=== PATIENT | female | born 1995 | race Caucasian/White ===

== ENCOUNTER 2017-01-01 05:56 | Day surgery (SDC) | payer BC ==
[2017-01-01] MEDS ORDERED: Lactated Ringers 1,000 ML IV SCH (06:30)
[2017-01-01] MEDS ORDERED: Lactated Ringers 1,000 ML IV ONE ×2 (06:45→08:33)
[2017-01-01] MEDS ORDERED: Versed 2 MG/2 ML Injection IV ONE (08:00)
[2017-01-01] MEDS ORDERED: DIPRIVAN 200 MG/20 ML IV ONE (08:00)
--- NOTE | 2017-01-01 09:17 | OP ---
SURGERY DATE/TIME: 01/01/2017 0754 PREOPERATIVE DIAGNOSIS: Abdominal pain. POSTOPERATIVE DIAGNOSIS: Normal examinations. PROCEDURES: 1) Esophagogastroduodenoscopy with biopsy. 2) Colonoscopy with biopsy. SURGEON: Dr. Laws. ANESTHESIA: Medications were given by the anesthesia department. HISTORY: The patient is a 21 year old white female presenting for several year history of abdominal pain in epigastric and lower abdomen. The patient reports that she previously had a cholecystectomy performed which she felt did help initially. She was found to have a low ejection fraction when this was done. The patient now presents for endoscopic evaluation due to the persistence of the pain. She was described the risks of the procedure including risk of perforation, phlebitis, untoward reaction to medication, bleeding and missed lesions. The patient verbalized her understanding and desired to have the procedure performed. DESCRIPTION OF PROCEDURE: The patient was given the medications by the anesthesia department. She had continuous pulse oximetry, ECG monitoring, intermittent blood pressure monitoring and tidal CO2 monitoring during the examination. She was placed in the left lateral decubitus position. A bite block was placed and the flexible Olympus gastroscope was used to intubate the oropharynx. A view of the esophagus was developed and it was normal throughout its length. The stomach was entered. The gastric christianson was suctioned dry and the stomach was re-insufflated. The gastric rugal folds distended nicely with insufflation of air. The scope was passed along the greater curvature of the stomach to the antrum. The pylorus is encountered and intubated. The duodenum is inspected. Biopsies were obtained to rule out celiac sprue. The scope is withdrawn towards the stomach. A retroflex view was obtained of the lesser curvature, fundus and cardia regions of the stomach and these appeared to be normal. The scope was then redirected towards the antrum and biopsies were obtained to rule out the presence of Helicobacter pylori-type organisms. The scope was then removed from the patient. Next, a digital rectal examination was performed and revealed normal anal sphincter tone and no masses. The flexible Olympus pediatric colonoscope was used to intubate the rectum. A view of the colon was developed sequentially to the cecum including a short distance in the terminal ileum. Biopsies were obtained in the terminal ileum to rule out underlying evidence of any colitis specifically Crohn's. There were also random biopsies taken throughout the colon to rule out any collagenous colitis. The scope was removed from the patient who tolerated the procedure well and was sent back to OP recovery in good condition. The prep was noted to be fair to good.
[2017-01-01 10:49] VITALS: BP 112/69; PULSE 95; O2SAT 97
== END 2017-01-01 09:50 | disposition home or self-care (01) ==
LOC: SDC 05:56
PROVIDERS: ATTEND Family Medicine
PROC: 0DB88ZX Excision of Small Intestine, Via Natural or Artificial Opening Endoscopic, Diagnostic (ICD-10-PCS; principal; 2017-01-01)
PROC: 0DB78ZX Excision of Stomach, Pylorus, Via Natural or Artificial Opening Endoscopic, Diagnostic (ICD-10-PCS; 2017-01-01)
PROC: 0DBE8ZX Excision of Large Intestine, Via Natural or Artificial Opening Endoscopic, Diagnostic (ICD-10-PCS; 2017-01-01)
DX: R10.9 Unspecified abdominal pain (principal)
CPT/HCPCS: 00740; 00810; 36415; 84703; 88305; 88312; J2250; J2704